=== PATIENT | male | born 1965 | race Caucasian/White ===

== ENCOUNTER 2016-11-02 23:22 | Emergency (ER) | payer MEDICARE, OTHER ==
[2016-11-02 23:43] LABS: BASOPHIL 0 % (0-2); EOSINOPHIL 0.2 % (0-5); HCT 36.1 % (42.0-52.0); HGB 11.9 g/dl (13.2-18.0); LYMPHOCYTE 47.1 % (15-48); MCH 29.3 pg (25.0-31.0); MCV 88.9 fL (78.0-100.0); MONOCYTE 11.9 % (0-12); MPV 10.2 fL (6.0-9.5); NEUTROPHIL 40.8 % (41-80); PLT 148 K/uL (150-400); RBC 4.06 M/uL (4.70-6.00); RDW 13.6 % (11.5-14.0); WBC 4.6 K/uL (4.0-10.5)
[2016-11-03] LABS: ALBUMIN 4.4 g/dL (3.5-5.0); BILIRUBIN - TOTAL 0.2 mg/dL (0.1-1.0); GLOBULIN (CALCULATION) 2.6 g/dL (2.2-4.2); MAGNESIUM 2.08 mg/dL (1.40-2.10); POTASSIUM 4.4 mmol/L (3.5-5.1)
[2016-11-03 00:34] LABS: BILIRUBIN NEGATIVE (NEGATIVE); BLOOD NEGATIVE Ery/uL (NEGATIVE); CLARITY CLEAR (CLEAR); COLOR YELLOW (YELLOW); GLUCOSE (U) NORMAL (NORMAL); KETONE (U) NEGATIVE (NEGATIVE); LEUKOCYTES NEGATIVE Leu/uL (NEGATIVE); NITRITE NEGATIVE (NEGATIVE); PROTEIN NEGATIVE (NEGATIVE); UROBILINOGEN 0.2 mg/dL (0.2-1.0)
[2016-11-03 00:39] LABS: AMPHETAMINES NEGATIVE (NEGATIVE); BARBITURATES NEGATIVE (NEGATIVE); COCAINE NEGATIVE (NEGATIVE); METHADONE NEGATIVE (NEGATIVE); TRICYCLIC ANTIDEPRESSANT NEGATIVE (NEGATIVE)
[2016-11-03 00:43] LABS: BENZODIAZEPINES POSITIVE (NEGATIVE); MARIJUANA (THC) POSITIVE (NEGATIVE)
== END 2016-11-03 06:30 | disposition other institution (70) ==
LOC: FER 23:22
PROVIDERS: Internal Medicine
DX: G40.401 Other generalized epilepsy and epileptic syndromes, not intractable, with status epilepticus (principal); G35 Multiple sclerosis; I10 Essential (primary) hypertension; E03.9 Hypothyroidism, unspecified; G20 Parkinson's disease; G25.81 Restless legs syndrome; Z88.8 Allergy status to other drugs, medicaments and biological substances; Z91.09 Other allergy status, other than to drugs and biological substances; Z79.899 Other long term (current) drug therapy
CPT/HCPCS: 36415; 70450; 80053; 80156; 80164; 80305; 81003; 83735; 85025; 93005; 96372; J1165; J2060

== ENCOUNTER 2017-01-01 01:48 | Emergency (ER) | payer MEDICARE, OTHER ==
[2017-01-01 02:44] LABS: BASOPHIL 0 % (0-2); EOSINOPHIL 0.3 % (0-5); HCT 31.5 % (42.0-52.0); HGB 10.6 g/dl (13.2-18.0); LYMPHOCYTE 30.3 % (15-48); MCH 29.9 pg (25.0-31.0); MCHC 33.7 g/dL (32.0-36.0); MONOCYTE 6.8 % (0-12); MPV 9.4 fL (6.0-9.5); NEUTROPHIL 62.6 % (41-80); PLT 186 K/uL (150-400); RBC 3.54 M/uL (4.70-6.00); RDW 14.9 % (11.5-14.0); WBC 6.7 K/uL (4.0-10.5)
[2017-01-01 02:57] LABS: ALBUMIN 4.3 g/dL (3.5-5.0); BILIRUBIN - TOTAL 0.2 mg/dL (0.1-1.0); GLOBULIN (CALCULATION) 2.4 g/dL (2.2-4.2); MAGNESIUM 1.98 mg/dL (1.40-2.10); POTASSIUM 4.5 mmol/L (3.5-5.1); TOTAL PROTEIN 6.7 g/dL (6.4-8.3)
[2017-01-01 03:45] LABS: BILIRUBIN NEGATIVE (NEGATIVE); BLOOD NEGATIVE Ery/uL (NEGATIVE); CLARITY CLEAR (CLEAR); COLOR YELLOW (YELLOW); GLUCOSE (U) NORMAL (NORMAL); KETONE (U) NEGATIVE (NEGATIVE); LEUKOCYTES NEGATIVE Leu/uL (NEGATIVE); NITRITE NEGATIVE (NEGATIVE); PROTEIN NEGATIVE (NEGATIVE); UROBILINOGEN 0.2 mg/dL (0.2-1.0); pH 5.5 (5.0-9.0)
[2017-01-01 03:57] LABS: AMPHETAMINES NEGATIVE (NEGATIVE); BARBITURATES NEGATIVE (NEGATIVE); BENZODIAZEPINES POSITIVE (NEGATIVE); COCAINE NEGATIVE (NEGATIVE); MARIJUANA (THC) NEGATIVE (NEGATIVE); METHADONE NEGATIVE (NEGATIVE)
[2017-01-01 03:58] LABS: TRICYCLIC ANTIDEPRESSANT POSITIVE (NEGATIVE)
== END 2017-01-01 09:39 | disposition home or self-care (01) ==
LOC: FER 01:48
PROVIDERS: Emergency Medicine Emergency Medical Services
DX: G40.409 Other generalized epilepsy and epileptic syndromes, not intractable, without status epilepticus (principal); R51 Headache; M54.2 Cervicalgia; M54.9 Dorsalgia, unspecified; G35 Multiple sclerosis; G20 Parkinson's disease; Z88.8 Allergy status to other drugs, medicaments and biological substances
CPT/HCPCS: 36415; 80053; 80164; 80299; 80305; 81003; 83735; 85025; 93005; J1953; J2060; J2405